=== PATIENT | female | born 1990 | race Two or more races ===

== ENCOUNTER 2019-05-25 08:36 | Emergency (ER) | payer SELFPAY ==
[~2019-05-25] VITALS: Ht 167.6 cm; Wt 67.1 kg
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
[2019-05-25] MEDS ORDERED: LORAZEPAM 1 MG TABLET ONE (08:54)
[2019-05-25 08:58] VITALS: BP 128/69
[2019-05-25] MEDS ORDERED: LORAZEPAM 1 MG TABLET PO ONE (09:00)
--- NOTE | 2019-05-25 10:15 | NUR ---
Patient ambulatory with steady gait. Patient discharged to home in stable condition. Written and verbal after care instructions given. Patient verbalizes understanding of instruction.
== END 2019-05-25 10:15 | disposition home or self-care (01) ==
LOC: ER 08:37
DX: F41.9 Anxiety disorder, unspecified (principal)

== ENCOUNTER 2022-07-25 10:27 | Emergency (ER) | payer BC ==
[~2022-07-25] VITALS: Ht 167.6 cm; Wt 54.4 kg
--- NOTE | 2022-07-25 10:40 | NUR ---
RECEIVED PT 32 YRS FEMALE FROM HOME C/O RT LOWER ABDOMINAL PAIN SINCE 5 AM TODY WITH N/ GOTING WORE WITH MOVEMENT
--- NOTE | 2022-07-25 10:45 | NUR ---
UA SENT TO LAB
--- NOTE | 2022-07-25 11:00 | NUR ---
WATING TO BE SEEN BY PROVIDER
--- NOTE | 2022-07-25 11:47 | NUR ---
SEEN BY DR. KRAMER
--- NOTE | 2022-07-25 12:00 | NUR ---
INserted ango catheter g 18 on la ac blood drow and sent to lab ivf NS infused and patent MORPHIN 4 MG IVP GIVEN AND ZOFRAN 4MG IVP GIVEN
[2022-07-25] MEDS ORDERED: ONDANSETRON HCL/PF 4 MG/2 ML VIAL ONE (12:03)
[2022-07-25] MEDS ORDERED: MORPHINE SULFATE INJ 4 MG/ML DISP.SYRIN ONE (12:03)
[2022-07-25] MEDS: IV NS 0.9% 1,000 ML BAG IV ONE (12:11)
[2022-07-25] MEDS: ONDANSETRON HCL/PF 4 MG/2 ML VIAL IVP ONE (12:14)
[2022-07-25] MEDS: MORPHINE SULFATE INJ 2 MG/ML DISP.SYRIN IV ONE (12:14)
[2022-07-25 12:35] LABS: BASOPHILS % (AUTO) 1.2 % (0.0-2.0); EOSINOPHILS % (AUTO) 2.1 % (0.0-6.0); HEMATOCRIT 39 % (33-45); HEMOGLOBIN 12.7 g/dL (11.5-14.8); LYMPHOCYTES # (AUTO) 1.1 K/uL (0.8-4.8); LYMPHOCYTES % (AUTO) 28.4 % (20.0-44.0); MEAN CORPUSCULAR HGB CONC 33 g/dl (31.0-36.0); MEAN CORPUSCULAR VOLUME 96 fL (82-100); MONOCYTES # (AUTO) 0.4 K/uL (0.1-1.30); MONOCYTES % (AUTO) 10.3 % (2.0-12.0); NEUTROPHILS # (AUTO) 2.2 K/uL (1.8-8.9); PLATELET COUNT (AUTO) 303 K/uL (150-450); RED BLOOD CELL COUNT(AUTO) 4.02 MIL/uL (4.0-5.2); WHITE BLOOD COUNT (AUTO) 3.9 K/uL (4.3-11.0)
[2022-07-25] MEDS ORDERED: IV NS 0.9% 250 ML IV ONE (12:46)
[2022-07-25] MEDS ORDERED: IOHEXOL-300 100 ML VIAL IV ONE (12:46)
[2022-07-25 12:47] LABS: CALCIUM, SERUM 9.4 mg/dL (8.5-10.1); CREATININE 0.6 mg/dL (0.6-1.3); POTASSIUM 3.6 mmol/L (3.5-5.1)
[2022-07-25 12:47] LABS: BACTERIA,URINE Moderate /HPF (None Seen); BILIRUBIN,URINE NEGATIVE (NEGATIVE); COLOR,URINE DARK YELLOW (YELLOW); LEUKOCYTE ESTERASE ,URINE NEGATIVE (NEGATIVE); NITRITE, URINE POSITIVE (NEGATIVE); PH,URINE 7.5 (5.0-8.0); PROTEIN,URINE NEGATIVE (NEGATIVE); RBC,URINE 0-2 /HPF (0-2); SQUAMOUS EPITHELIAL CELL,UR Few /HPF (None Seen); UGLUCOSE NEGATIVE (NEGATIVE)
[2022-07-25 12:50] LABS: ALBUMIN 4.2 g/dL (3.4-5.0); BILIRUBIN,DIRECT 0.1 mg/dL (0.0-0.2); BILIRUBIN,TOTAL 0.7 mg/dL (0.2-1.0); TOTAL PROTEIN, SERUM 7.9 g/dL (6.4-8.2)
--- NOTE | 2022-07-25 13:24 | NUR ---
TO CT SCAN VIA SELENE
--- NOTE | 2022-07-25 14:15 | NUR ---
US DONE AT BED SIDE
[2022-07-25] MEDS: KETOROLAC TROMETHAMINE INJ 30 MG/ML VIAL IV ONE (14:27)
[2022-07-25] MEDS ORDERED: KETOROLAC TROMETHAMINE INJ 30 MG/ML VIAL ONE (14:27)
--- NOTE | 2022-07-25 14:45 | NUR ---
abdominale pain contoled resting and comfortable
[2022-07-25] MEDS ORDERED: KETO10TA2 PO (15:37)
[2022-07-25] MEDS ORDERED: OXYC5TAB3 PO (15:37)
[2022-07-25] MEDS ORDERED: SULF1TAB48 PO (15:46)
--- NOTE | 2022-07-25 15:50 | NUR ---
IV removed. Catheter intact and site benign. Pressure and 4x4 applied to site. No bleeding noted.
--- NOTE | 2022-07-25 15:55 | NUR ---
Patient discharged to home in stable condition. Written and verbal after care instructions given. Patient verbalizes understanding of instruction.
[2022-07-25 16:05] VITALS: BP 127/80
== END 2022-07-25 16:05 | disposition home or self-care (01) ==
LOC: ER 10:37
DX: N39.0 Urinary tract infection, site not specified (principal); R10.31 Right lower quadrant pain
CPT/HCPCS: 99285; 74177; 96374; 76856; 96375; 96361; 85025; 80048; 87086; 83690; 80076; 84703; 81001; 36415; J2270; J1885; J2405; J7030; J7050; Q9967